=== PATIENT | male | born 1995 | race Caucasian/White ===

== ENCOUNTER 2022-01-11 03:38 | Emergency (ER) | payer OTHER ==
[~2022-01-11] VITALS: Ht 182.9 cm; Wt 118.1 kg
[2022-01-11] MEDS ORDERED: LIDOCAINE 2% MDV 20ML VIAL SC ONE (04:05)
[2022-01-11 08:00] VITALS: BP 150/80
== END 2022-01-11 09:01 | disposition home or self-care (01) ==
LOC: M ED 03:38
DX: S00.03XA Contusion of scalp, initial encounter (principal); S01.511A Laceration without foreign body of lip, initial encounter; W19.XXXA Unspecified fall, initial encounter; Y92.410 Unspecified street and highway as the place of occurrence of the external cause; F10.10 Alcohol abuse, uncomplicated